=== PATIENT | male | born 2000 | race Caucasian/White ===

== ENCOUNTER 2018-02-16 00:20 | Observation (INO) | payer BC ==
--- NOTE | 2018-02-16 00:38 | EDM.PDOC ---
ED HPI GENERAL MEDICAL PROBLEM - General Chief Complaint: Neuro Symptoms/Deficits Stated Complaint: unconscious Time Seen by Provider: 02/16/18 00:20 Source of Information: Reports: Patient, Family (Mother), RN, Other (Friends) History Limitations: Reports: Intoxication - History of Present Illness INITIAL COMMENTS - FREE TEXT/NARRATIVE: This patient is a 17 year old male that presents to the front of the hospital in a private vehicle. A friend had driven him. The patient is wheeled in by RN in wheelchair. The friends report the patient has been drinking today and that he fell and hit his head. The patient has slurred speech, at times uncooperative , fait ataxia, appears intoxicated, smells of ETOH. Patient mother has arrived to ER with patient. They wanted to take the patient home, but Bre GARDUNO and I discussed with patient and mother that with positive ETOH and head injury, the patient needs a head ct to rule out a head bleed. I will ct head and neck due to ETOH with injury. Onset: Today Onset Date: 02/16/18 Location: Reports: Head Severity: Moderate Improves with: Reports: None Worsens with: Reports: None Associated Symptoms: Denies: Chest Pain, Cough, cough w sputum, Diaphoresis, Fever/Chills, Headaches, Loss of Appetite, Malaise, Nausea/Vomiting, Rash, Seizure, Shortness of Breath, Syncope, Weakness - Related Data Allergies Allergy/AdvReac Type Severity Reaction Status Date / Time No Known Allergies Allergy Verified 02/16/18 00:27 Home Meds: Home Meds . [No Known Home Meds] 02/16/18 [History] Past Medical History - Past Health History Medical/Surgical History: Denies Medical/Surgical History - Past Surgical History GI Surgical History: Reports: Appendectomy ED ROS GENERAL - Review of Systems Review Of Systems: See Below Constitutional: Reports: Other (Appears intoxicated with gait ataxia, slurred speech, smells of ETOH.) HEENT: Reports: No Symptoms Respiratory: Reports: No Symptoms Cardiovascular: Reports: No Symptoms Endocrine: Reports: No Symptoms GI/Abdominal: Reports: No Symptoms : Reports: No Symptoms Musculoskeletal: Reports: No Symptoms Skin: Reports: No Symptoms Neurological: Reports: Trouble Speaking (slurred speech), Difficulty Walking, Gait Disturbance (gait ataxia with intoxication) Psychiatric: Reports: No Symptoms Hematologic/Lymphatic: Reports: No Symptoms Immunologic: Reports: No Symptoms ED EXAM, HEAD INJURY - Physical Exam Exam: See Below Exam Limited By: Intoxication Head: Facial Swelling (left frontal forehead) Nexus Criteria: Evidence of Intoxication Eyes: Bilateral Eye: EOMI (Would not follow command), Normal Inspection, PERRL Ears: Normal External Exam, Normal Canal, Hearing Grossly Normal, Normal TMs Nose: Normal Inspection, Normal Mucousa, No Blood Throat/Mouth: Normal Inspection, Normal Lips, Normal Teeth, Normal Gums, Normal Oropharynx, Normal Voice, No Airway Compromise Neck: Non-Tender, Full Range of Motion, Normal Alignment, Normal Inspection Respiratory: No Respiratory Distress, Lungs Clear, Normal Breath Sounds, No Accessory Muscle Use, Chest Non-Tender Cardiovascular: Normal Peripheral Pulses, Regular Rate, Rhythm, No Edema, No Gallop, No JVD, No Murmur, No Rub GI/Abdominal Exam: Soft, Non-Tender Back Exam: Normal Inspection, Full Range of Motion Extremities: Normal Inspection, Normal Range of Motion, Non-Tender, No Pedal Edema, Normal Capillary Refill Neurologic: Alert, Other (Gait ataxia. Appears intoxicated. Slurred speech. ) Skin: Normal Color, Warm/Dry - Strat[place] Coma Score Best Eye Response (Kp): (4) Open Spontaneously Best Verbal Response ([place]): (5) Oriented Best Motor Response ([place]): (5) Localizes to Pain Course - Vital Signs Last Recorded V/S: Last Vital Signs Temp 97.8 F 02/16/18 00:28 Pulse 108 H 02/16/18 00:28 Resp 20 02/16/18 00:28 BP 144/36 H 02/16/18 00:28 Pulse Ox 96 02/16/18 00:28 - Orders/Labs/Meds Orders: Active Orders 24 hr Category Date Time Status Patient Status Manage Transfer [TRANSFER] Routine ADT 02/16/18 03:26 Ordered Head wo Cont [CT] Stat Exams 02/16/18 00:30 Taken Sodium Chloride 0.9% [Normal Saline] 1,000 ml Med 02/16/18 03:21 Active IV .BOLUS Resuscitation Status Routine Resus Stat 02/16/18 03:29 Ordered Medication Orders Sodium Chloride (Normal Saline) 1,000 mls @ 1,000 mls/hr IV .BOLUS ONE Stop: 02/16/18 04:20 Labs: Laboratory Tests 02/16/18 02/16/18 Range/Units 02:41 02:41 WBC 11.5 H (5.0-10.0) 10^3/uL RBC 5.51 (4.50-6.00) 10^6/uL Hgb 16.7 (14.0-18.0) g/dL Hct 45.5 (40.0-54.0) % MCV 82.6 (82.0-94.0) fL MCH 30.3 (27.0-32.0) pg MCHC 36.7 (33.0-38.0) g/dL RDW Coeff of Riana 13.1 (11.0-15.0) % Plt Count 285 (150-400) 10^3/uL Neut % (Auto) 78.7 (35-85) % Lymph % (Auto) 15.6 (10-55) % Emmons % (Auto) 5.3 (0-16) % Eos % (Auto) 0.2 (0-5) % Baso % (Auto) 0.2 (0-3) % Neut # (Auto) 9.08 H (1.80-7.00) 10^3/uL Lymph # (Auto) 1.80 (1.00-4.80) 10^3/uL Emmons # (Auto) 0.61 (0.00-0.80) 10^3/uL Eos # (Auto) 0.02 (0.00-0.45) 10^3/uL Baso # (Auto) 0.02 10^3/uL Sodium 146 H (136-145) mEq/L Potassium 4.1 (3.5-5.0) mEq/L Chloride 107 H (98-106) mEq/L Carbon Dioxide 24 (21-32) mmol/L BUN 13 (7-18) mg/dL Creatinine 1.0 (0.7-1.3) mg/dL Est Cr Clr Drug Dosing 126.55 mL/min Estimated GFR (MDRD) > 60 (>=60) mL/min Glucose 117 H (75-99) mg/dL Calcium 8.7 (8.4-10.1) mg/dL Total Bilirubin 1.4 H (0.0-1.0) mg/dL AST 33 (15-37) U/L ALT 43 (12-78) U/L Alkaline Phosphatase 67 (46-116) U/L Total Protein 8.1 (6.4-8.2) g/dL Albumin 4.8 (3.4-5.0) g/dL Meds: Medications Generic Name Dose Route Start Last Admin Trade Name Odilia PRN Reason Stop Dose Admin Sodium Chloride 1,000 mls @ 1,000 mls/hr 02/16/18 03:21 Normal Saline IV 02/16/18 04:20 .BOLUS ONE Discontinued Medications Generic Name Dose Route Start Last Admin Trade Name Freq PRN Reason Stop Dose Admin Sodium Chloride 1,000 mls @ 1,000 mls/hr 02/16/18 02:03 02/16/18 02:36 Normal Saline IV 02/16/18 03:02 1,000 mls/hr .BOLUS ONE Administration - Radiology Interpretation Free Text/Narrative:: Head CT: Discussed with radiologist. No acute fracture. No acute infarct. Increased density of the vascular system. We discussed that this is likely due to dehydration, but this will limit detection of very small amount of subarachnoid hemorrhage. - Re-Assessments/Exams Free Text/Narrative Re-Assessment/Exam: 02/16/18 01:21 I ordered head and cervical ct. The patient was uncooperative. RN placed on lead and assisted in keeping patient calm. 02/16/18 02:05 After discussing radiology results with radiologist, I then called and spoke to Dr. Wasserman at [facility]. She recommends calling Neurosurgery at [facility] and discussing with them. I have called [facility] and awaiting call back. 02/16/18 02:[address] Alvarado the neurosurgeon at [facility]. He reports that shoulk Departure - Departure Time of Disposition: 03:30 Disposition: Refer to Observation Condition: Fair Clinical Impression: Head injury Qualifiers: Encounter type: initial encounter Qualified Code(s): S09.90XA - Unspecified injury of head, initial encounter Alcohol intoxication Qualifiers: Complication of substance-induced condition: uncomplicated Qualified Code(s): F10.920 - Alcohol use, unspecified with intoxication, uncomplicated - Discharge Information *PRESCRIPTION DRUG MONITORING PROGRAM REVIEWED*: No *COPY OF PRESCRIPTION DRUG MONITORING REPORT IN PATIENT JEOVANNY: No Referrals: PCP,None [Primary Care Provider] - Forms: ED Department Discharge - My Orders Last 24 Hours: My Active Orders 02/16/18 00:30 Head wo Cont [CT] Stat 02/16/18 03:21 Sodium Chloride 0.9% [Normal Saline] 1,000 ml IV .BOLUS 02/16/18 03:26 Patient Status Manage Transfer [TRANSFER] Routine 02/16/18 03:29 Resuscitation Status Routine - Assessment/Plan Last 24 Hours: My Active Orders 02/16/18 00:30 Head wo Cont [CT] Stat 02/16/18 03:21 Sodium Chloride 0.9% [Normal Saline] 1,000 ml IV .BOLUS 02/16/18 03:26 Patient Status Manage Transfer [TRANSFER] Routine 02/16/18 03:29 Resuscitation Status Routine Plan: PLEASE SEE RN NOTE FOR PFSH.
[2018-02-16] MEDS ORDERED: Sodium Chloride 0.9% 1,000 ML IV ONE ×2 (02:03→03:21)
[2018-02-16 03:07] LABS: CHLORIDE,CL 107 mEq/L (98-106); SODIUM,NA 146 mEq/L (136-145)
[2018-02-16] MEDS ORDERED: Acetaminophen 325 MG Tab PO PRN (03:34)
[2018-02-16] MEDS ORDERED: Ondansetron 4 MG/2 ML SDV IV PRN (03:34)
[2018-02-16] MEDS ORDERED: Sodium Chloride 0.9% 1,000 ML IV SCH (03:34)
[2018-02-16 08:31] VITALS: BP 144/67
--- NOTE | 2018-02-16 11:45 | PCM.DCSUM1 ---
Discharge Summary - Hospital Course HPI Initial Comments: This patient is a 17 year old male that was admitted early this morning for intoxication with head bleed rule out and dehydration. This morning the patient has no gait ataxia. He has no slurred speech. He apologized for his behavior and is alert and oriented. Mother and father at bedside. Patient reports having history of weekend binge drinking. Diagnosis: Stroke: No Modified Baxter Scale: No Symptoms at All Modified Baxter Scale Score: 0 - Discharge Data Discharge Date: 02/16/18 Discharge Disposition: Home, Self-Care 01 Condition: Good - Patient Summary/Data Recommended Follow-up Testing/Procedures: F/U PCP as needed Return as needed - Patient Instructions Diet: Usual Diet as Tolerated (Without alcohol) Activity: As Tolerated Driving: Do Not Drive (Not today. ) Showering/Bathing: May Shower Notify Provider of: Fever, Swelling and Redness, Nausea and/or Vomiting - Discharge Plan *PRESCRIPTION DRUG MONITORING PROGRAM REVIEWED*: No *COPY OF PRESCRIPTION DRUG MONITORING REPORT IN PATIENT JEOVANNY: No Home Medications: Home Meds . [No Known Home Meds] 02/16/18 [History] Patient Handouts: Alcohol Intoxication, Head Injury, Adult, [id number] Forms: ED Department Discharge Referrals: PCP,None [Primary Care Provider] - - Discharge Summary/Plan Comment DC Time >30 min.: No - General Info Date of Service: 02/16/18 Functional Status: Reports: Pain Controlled, Tolerating Diet, Ambulating, Urinating - Review of Systems General: Reports: No Symptoms HEENT: Reports: No Symptoms Pulmonary: Reports: No Symptoms Cardiovascular: Reports: No Symptoms Gastrointestinal: Reports: No Symptoms Genitourinary: Reports: No Symptoms Musculoskeletal: Reports: No Symptoms Skin: Reports: No Symptoms Neurological: Reports: No Symptoms Psychiatric: Reports: No Symptoms - Patient Data Vitals - Most Recent: Last Vital Signs Temp 96.7 F 02/16/18 08:00 Pulse 103 H 02/16/18 08:00 Resp 20 02/16/18 08:00 BP 144/67 H 02/16/18 08:00 Pulse Ox 97 02/16/18 08:00 Weight - Most Recent: 215 lb 9.793 oz Lab Results - Last 24 hrs: Laboratory Results - last 24 hr 02/16/18 02/16/18 Range/Units 02:41 02:41 WBC 11.5 H (5.0-10.0) 10^3/uL RBC 5.51 (4.50-6.00) 10^6/uL Hgb 16.7 (14.0-18.0) g/dL Hct 45.5 (40.0-54.0) % MCV 82.6 (82.0-94.0) fL MCH 30.3 (27.0-32.0) pg MCHC 36.7 (33.0-38.0) g/dL RDW Coeff of Riana 13.1 (11.0-15.0) % Plt Count 285 (150-400) 10^3/uL Neut % (Auto) 78.7 (35-85) % Lymph % (Auto) 15.6 (10-55) % Sumner % (Auto) 5.3 (0-16) % Eos % (Auto) 0.2 (0-5) % Baso % (Auto) 0.2 (0-3) % Neut # (Auto) 9.08 H (1.80-7.00) 10^3/uL Lymph # (Auto) 1.80 (1.00-4.80) 10^3/uL [place]ner # (Auto) 0.61 (0.00-0.80) 10^3/uL Eos # (Auto) 0.02 (0.00-0.45) 10^3/uL Baso # (Auto) 0.02 10^3/uL Sodium 146 H (136-145) mEq/L Potassium 4.1 (3.5-5.0) mEq/L Chloride 107 H (98-106) mEq/L Carbon Dioxide 24 (21-32) mmol/L BUN 13 (7-18) mg/dL Creatinine 1.0 (0.7-1.3) mg/dL Est Cr Clr Drug Dosing 126.55 mL/min Estimated GFR (MDRD) > 60 (>=60) mL/min Glucose 117 H (75-99) mg/dL Calcium 8.7 (8.4-10.1) mg/dL Total Bilirubin 1.4 H (0.0-1.0) mg/dL AST 33 (15-37) U/L ALT 43 (12-78) U/L Alkaline Phosphatase 67 (46-116) U/L Total Protein 8.1 (6.4-8.2) g/dL Albumin 4.8 (3.4-5.0) g/dL Med Orders - Current: Current Medications Acetaminophen (Tylenol) 650 mg PO Q4H PRN PRN Reason: Pain (Mild 1-3)/fever Sodium Chloride (Normal Saline) 1,000 mls @ 125 mls/hr IV ASDIRECTED BRANDY Last Admin: 02/16/18 04:38 Dose: 125 mls/hr Ondansetron HCl (Zofran) 4 mg IV Q6H PRN PRN Reason: Nausea/Vomiting Discontinued Medications Sodium Chloride (Normal Saline) 1,000 mls @ 1,000 mls/hr IV .BOLUS ONE Stop: 02/16/18 03:02 Last Admin: 02/16/18 02:36 Dose: 1,000 mls/hr Sodium Chloride (Normal Saline) 1,000 mls @ 1,000 mls/hr IV .BOLUS ONE Stop: 02/16/18 04:20 Last Admin: 02/16/18 03:30 Dose: 1,000 mls/hr - Exam General: Reports: Alert, Oriented, Cooperative, No Acute Distress HEENT: Reports: Pupils Equal, Pupils Reactive, Mucous Membr. Moist/[place] Neck: Reports: Supple Lungs: Reports: Clear to Auscultation, Normal Respiratory Effort Cardiovascular: Reports: Regular Rate, Regular Rhythm, No Murmurs GI/Abdominal Exam: Soft, Non-Tender Back Exam: Reports: Normal Inspection, Full Range of Motion Extremities: Normal Inspection, Normal Range of Motion, Non-Tender, No Pedal Edema, Normal Capillary Refill Skin: Reports: Warm, Dry, Intact Neurological: Reports: No New Focal Deficit, Normal Gait, Normal Speech Psy/Mental Status: Reports: Alert, Normal Affect, Normal Mood *Q Meaningful Use (DIS) - VTE *Q VTE Mechanical Contraindications *Q: At Risk for Falls
== END 2018-02-16 11:54 | disposition home or self-care (01) ==
LOC: CC.ED 00:20 → INTOOBSV 03:33 → CC.MS 03:33 → OBSVTOIN 03:33
PROVIDERS: ADMIT Nurse Practitioner; ATTEND Nurse Practitioner
DX: F10.129 Alcohol abuse with intoxication, unspecified (principal); S09.90XA Unspecified injury of head, initial encounter; W19.XXXA Unspecified fall, initial encounter
CPT/HCPCS: 36415; 70450; 80053; 85025; 96360; 96361; 96365; 99285; G0378; J7030